=== PATIENT | female | born 1960 | race Caucasian/White ===

== ENCOUNTER 2021-11-21 00:57 | Inpatient (IN) | payer BC ==
[2021-11-21] MEDS ORDERED: Albuterol Sulfate 2.5 mg/3 ml Neb ONE (01:01)
[2021-11-21] MEDS ORDERED: methylPREDNISolone Sod Succ/PF 125 MG/2 ML VIAL ONE (01:04)
[2021-11-21] MEDS ORDERED: Magnesium 2 GM/50 ML BAG (IN WATER) ONE (01:04)
[2021-11-21 01:27] LABS: #Eosinphils 0.1 thou/uL (0.0-0.7); #Lymphocytes 1.1 thou/uL (1.20-3.40); #Monocytes 0.6 thou/uL (0.11-0.59); #Neutrophils 6.3 thou/uL (1.40-6.50); %Eosinophils 1.5 % (0.0-10.0); %Lymphocytes 13.2 % (21.0-51.0); %Monocytes 7.4 % (0.0-10.0); Hemoglobin 10.3 g/dL (12.0-16.0); Mean Corpuscular HGB CONC 34.1 g/dL (32.0-36.0); Mean Corpuscular Hemoglobin 26.8 pg (27.0-31.0); Mean Corpuscular Volume 78.6 fL (78.0-98.0); Mean Platelet Volume 8.2 fL (7.4-10.4); Platelet Count 218 thou/uL (130-400); RBC Distribution Width 14.3 % (11.5-14.5); Red Blood Cell (RBC) Count 3.84 mill/uL (4.20-5.40); White Blood Cell (WBC) Count 8.1 thou/uL (4.8-10.8)
[2021-11-21 01:43] LABS: ALT (SGPT) 15 U/L (8-55); AST (SGOT) 22 U/L (5-34); Albumin 3.7 g/dL (3.5-5.0); Alkaline Phosphatase 118 U/L (40-110); Anion Gap 13 mmol/L (10-20); BUN (Urea Nitrogen) 14 mg/dL (9.8-20.1); Bilirubin, Total 0.6 mg/dL (0.2-1.2); Calc. Creatinine Clearance 0 mL/min (70-130); Calcium 8.4 mg/dL (7.8-10.44); Carbon Dioxide 25 mmol/L (22-29); Chloride 85 mmol/L (98-107); Globulin 2.8 g/dL (2.4-3.5); Glucose 215 mg/dL (70-105); Potassium 4.5 mmol/L (3.5-5.1); Protein, Total 6.5 g/dL (6.0-8.3)
[2021-11-21 01:50] LABS: Sodium 118 mmol/L (136-145)
[2021-11-21 02:24] LABS: SARS-CoV-2 NAA Rapid Test Not Detected (NotDetected)
[2021-11-21] MEDS ORDERED: Furosemide 40 MG/4 ML VIAL ONE (04:03)
[2021-11-21] MEDS ORDERED: Furosemide 20 MG/2 ML VIAL ONE (04:03)
[2021-11-21] MEDS ORDERED: Bisacodyl 5 MG TAB PO PRN (05:08)
[2021-11-21] MEDS ORDERED: Ondansetron PF 4 MG/2 ML Vial IVP PRN (05:08)
[2021-11-21] MEDS ORDERED: Loperamide HCl 2 MG CAP PO PRN (05:08)
[2021-11-21] MEDS ORDERED: Senokot S 8.6-50 MG TAB PO PRN (05:08)
[2021-11-21] MEDS ORDERED: Acetaminophen 325 MG TAB PO PRN (05:08)
[2021-11-21 05:53] VITALS: BMI 31.2
[2021-11-21] MEDS ORDERED: Furosemide 40 MG/4 ML VIAL SLOW IVP SCH ×2 (06:00→08:45)
[2021-11-21] MEDS: Nicotine 14 MG PATCH TD SCH ×2 (06:40→10:11)
[2021-11-21] MEDS ORDERED: Dextrose 50% Abboject 50 ML SYRINGE IVP PRN (07:15)
[2021-11-21] MEDS ORDERED: Dextrose 5% in Water 1,000 ML IV PRN ×2 (07:15→20:36)
[2021-11-21 08:22] LABS: Anion Gap 14 mmol/L (10-20); BUN (Urea Nitrogen) 15 mg/dL (9.8-20.1); Calc. Creatinine Clearance 82 mL/min (70-130); Calcium 8.5 mg/dL (7.8-10.44); Carbon Dioxide 24 mmol/L (22-29); Chloride 83 mmol/L (98-107); Glucose 281 mg/dL (70-105); Potassium 4.3 mmol/L (3.5-5.1)
[2021-11-21 08:27] LABS: Sodium 117 mmol/L (136-145)
[2021-11-21] MEDS ORDERED: Sodium Chloride 3% 200 ML IVPB SCH (08:45)
[2021-11-21] MEDS ORDERED: Iopamidol-370 76% 500 ML 1 ML ONE (08:53)
[2021-11-21] MEDS ORDERED: Insulin Glargine 30 UNITS/0.3 ML VIAL SC SCH ×2 (09:00→11:42)
[2021-11-21] MEDS ORDERED: Non-Formulary Item 1 EACH (Olmesartan Medoxomil [Olmesartan Medoxomil] 40 MG Tablet) PO SCH (09:00)
[2021-11-21] MEDS ORDERED: predniSONE 20 MG TAB PO SCH (09:00)
[2021-11-21 09:56] LABS: Iron 30 ug/dL (50-170); Iron Binding Capacity, Total 374 mcg/dL (265-497)
[2021-11-21] MEDS: Aspirin 81 mg Enteric Coated Tablet PO SCH (10:02)
[2021-11-21] MEDS: Carvedilol 6.25 MG TAB PO SCH ×2 (10:03→21:10)
[2021-11-21] MEDS: Doxycycline 100 MG CAP PO SCH ×2 (10:03→21:10)
[2021-11-21] MEDS: Clopidogrel Bisulfate 75 MG TAB PO SCH (10:04)
[2021-11-21] MEDS: Enoxaparin Sodium 40 MG/0.4 ML SYRINGE SC SCH (10:06)
[2021-11-21] MEDS: Methimazole 5 MG TAB PO SCH (11:38)
[2021-11-21 11:46] LABS: Anion Gap 18 mmol/L (10-20); BUN (Urea Nitrogen) 17 mg/dL (9.8-20.1); Calc. Creatinine Clearance 68 mL/min (70-130); Calcium 8.8 mg/dL (7.8-10.44); Carbon Dioxide 22 mmol/L (22-29); Chloride 81 mmol/L (98-107); Glucose 383 mg/dL (70-105); Potassium 4.4 mmol/L (3.5-5.1)
[2021-11-21 11:54] LABS: Sodium 117 mmol/L (136-145)
[2021-11-21] MEDS ORDERED: Iron, Sodium Ferric Gluconate 250 MG in Sodium Chloride 0.9% 250 ML 250 ML IVPB SCH (14:00)
[2021-11-21 15:59] LABS: Anion Gap 19 mmol/L (10-20); BUN (Urea Nitrogen) 18 mg/dL (9.8-20.1); Calc. Creatinine Clearance 68 mL/min (70-130); Calcium 8.7 mg/dL (7.8-10.44); Carbon Dioxide 23 mmol/L (22-29); Chloride 85 mmol/L (98-107); Glucose 410 mg/dL (70-105); Potassium 4.5 mmol/L (3.5-5.1); Sodium 122 mmol/L (136-145)
[2021-11-21] MEDS ORDERED: Dextrose 50% Abboject 50 ML SYRINGE SLOW IVP PRN (20:36)
[2021-11-21] MEDS ORDERED: Sodium Chloride 1 GM TAB PO SCH (21:00)
[2021-11-21] MEDS: HumaLOG 300 UNITS/3 ML VIAL SC PRN (21:05)
[2021-11-21] MEDS: Insulin Glargine 30 UNITS/0.3 ML VIAL SC SCH (21:06)
[2021-11-21] MEDS: Pramipexole Di-HCl 0.25 MG TAB PO SCH (21:10)
[2021-11-21] MEDS: Zolpidem Tartrate 5 MG TAB PO SCH (21:10)
[2021-11-21] MEDS: Atorvastatin Calcium 40 MG TAB PO SCH (21:11)
[2021-11-21 21:19] LABS: Anion Gap 17 mmol/L (10-20); BUN (Urea Nitrogen) 24 mg/dL (9.8-20.1); Calc. Creatinine Clearance 65 mL/min (70-130); Calcium 8.4 mg/dL (7.8-10.44); Carbon Dioxide 22 mmol/L (22-29); Chloride 88 mmol/L (98-107); Glucose 490 mg/dL (70-105); Potassium 4.3 mmol/L (3.5-5.1); Sodium 123 mmol/L (136-145)
[2021-11-22 04:04] LABS: #Lymphocytes 0.4 thou/uL (1.20-3.40); #Monocytes 0.6 thou/uL (0.11-0.59); #Neutrophils 9.2 thou/uL (1.40-6.50); %Eosinophils 0.1 % (0.0-10.0); %Monocytes 6.2 % (0.0-10.0); %Neutrophils 89.7 % (42.0-75.0); Hemoglobin 9.6 g/dL (12.0-16.0); Mean Corpuscular HGB CONC 33.2 g/dL (32.0-36.0); Mean Corpuscular Hemoglobin 25.8 pg (27.0-31.0); Mean Corpuscular Volume 77.6 fL (78.0-98.0); Mean Platelet Volume 8.8 fL (7.4-10.4); Platelet Count 250 thou/uL (130-400); RBC Distribution Width 14.3 % (11.5-14.5); Red Blood Cell (RBC) Count 3.71 mill/uL (4.20-5.40); White Blood Cell (WBC) Count 10.2 thou/uL (4.8-10.8)
[2021-11-22 04:11] LABS: Hemoglobin A1c 10.6 % (4.0-6.0)
[2021-11-22 04:27] LABS: ALT (SGPT) 11 U/L (8-55); AST (SGOT) 11 U/L (5-34); Albumin 3.4 g/dL (3.5-5.0); Alkaline Phosphatase 101 U/L (40-110); Anion Gap 15 mmol/L (10-20); BUN (Urea Nitrogen) 27 mg/dL (9.8-20.1); Bilirubin, Total 0.3 mg/dL (0.2-1.2); Calc. Creatinine Clearance 71 mL/min (70-130); Calcium 8.5 mg/dL (7.8-10.44); Carbon Dioxide 25 mmol/L (22-29); Chloride 92 mmol/L (98-107); Globulin 2.6 g/dL (2.4-3.5); Glucose 301 mg/dL (70-105); Potassium 3.9 mmol/L (3.5-5.1); Sodium 128 mmol/L (136-145)
[2021-11-22] MEDS: HumaLOG 300 UNITS/3 ML VIAL SC PRN ×3 (05:38→20:43)
[2021-11-22] MEDS ORDERED: Iron Sucrose Complex 500 MG in Sodium Chloride 0.9% 250 ML IVPB SCH (09:30)
[2021-11-22] MEDS ORDERED: Polyethylene Glycol 3350 17 GM Packet PO PRN (09:43)
[2021-11-22] MEDS ORDERED: Sodium Chloride 0.9% 250 ML IV SCH (09:45)
[2021-11-22] MEDS ORDERED: Sodium Chloride 0.9% 500 ML IV SCH (09:45)
[2021-11-22] MEDS: Doxycycline 100 MG CAP PO SCH ×2 (10:57→20:40)
[2021-11-22] MEDS: Insulin Glargine 30 UNITS/0.3 ML VIAL SC SCH (10:57)
[2021-11-22] MEDS: Enoxaparin Sodium 40 MG/0.4 ML SYRINGE SC SCH (10:57)
[2021-11-22] MEDS: Clopidogrel Bisulfate 75 MG TAB PO SCH (10:58)
[2021-11-22] MEDS: Nicotine 14 MG PATCH TD SCH (10:58)
[2021-11-22] MEDS: Aspirin 81 mg Enteric Coated Tablet PO SCH (10:58)
[2021-11-22 11:41] LABS: Platelet Count 248 thou/uL (130-400)
[2021-11-22] MEDS: Methimazole 5 MG TAB PO SCH (11:51)
[2021-11-22 11:57] LABS: Anion Gap 14 mmol/L (10-20); BUN (Urea Nitrogen) 28 mg/dL (9.8-20.1); Calc. Creatinine Clearance 71 mL/min (70-130); Calcium 8.6 mg/dL (7.8-10.44); Carbon Dioxide 25 mmol/L (22-29); Chloride 95 mmol/L (98-107); Glucose 110 mg/dL (70-105); Sodium 130 mmol/L (136-145)
[2021-11-22 12:01] LABS: Troponin I Less than 0.010 ng/mL (< 0.028)
[2021-11-22 12:08] LABS: Troponin I Less than 0.010 ng/mL (< 0.028)
[2021-11-22] MEDS: Carvedilol 6.25 MG TAB PO SCH (12:36)
[2021-11-22] MEDS: SODIUM CHLORIDE 0.9% IVPB SCH ×2 (13:04→23:34)
[2021-11-22] MEDS: IRON IVPB SCH ×2 (13:04→23:34)
[2021-11-22] MEDS: SODIUM FERRIC GLUCONATE IVPB SCH ×2 (13:04→23:34)
[2021-11-22 18:09] LABS: Anion Gap 13 mmol/L (10-20); BUN (Urea Nitrogen) 26 mg/dL (9.8-20.1); Calc. Creatinine Clearance 64 mL/min (70-130); Calcium 8.4 mg/dL (7.8-10.44); Carbon Dioxide 24 mmol/L (22-29); Chloride 93 mmol/L (98-107); Glucose 250 mg/dL (70-105); Potassium 3.9 mmol/L (3.5-5.1); Sodium 126 mmol/L (136-145)
[2021-11-22] MEDS: Senokot S 8.6-50 MG TAB PO SCH (20:40)
[2021-11-22] MEDS: Atorvastatin Calcium 40 MG TAB PO SCH (20:40)
[2021-11-22] MEDS: Pramipexole Di-HCl 0.25 MG TAB PO SCH (20:40)
[2021-11-22] MEDS: Zolpidem Tartrate 5 MG TAB PO SCH (20:40)
[2021-11-22] MEDS ORDERED: Sodium Chloride 1 GM TAB PO SCH (21:00)
[2021-11-23 03:29] VITALS: TEMP 97.9
[2021-11-23 04:33] LABS: #Basophils 0.1 thou/uL (0.0-0.2); #Eosinphils 0.1 thou/uL (0.0-0.7); #Lymphocytes 2.2 thou/uL (1.20-3.40); #Monocytes 0.7 thou/uL (0.11-0.59); #Neutrophils 8.5 thou/uL (1.40-6.50); %Basophils 0.5 % (0.0-1.0); %Eosinophils 0.7 % (0.0-10.0); %Lymphocytes 18.9 % (21.0-51.0); %Monocytes 6.3 % (0.0-10.0); %Neutrophils 73.6 % (42.0-75.0); Hemoglobin 9.8 g/dL (12.0-16.0); Mean Corpuscular HGB CONC 32.3 g/dL (32.0-36.0); Mean Corpuscular Hemoglobin 25.7 pg (27.0-31.0); Mean Corpuscular Volume 79.6 fL (78.0-98.0); Mean Platelet Volume 8.4 fL (7.4-10.4); Platelet Count 294 thou/uL (130-400); RBC Distribution Width 14.7 % (11.5-14.5); White Blood Cell (WBC) Count 11.6 thou/uL (4.8-10.8)
[2021-11-23 04:54] LABS: Phosphorus 3.5 mg/dL (2.3-4.7)
[2021-11-23 04:59] LABS: Anion Gap 13 mmol/L (10-20); BUN (Urea Nitrogen) 22 mg/dL (9.8-20.1); Calc. Creatinine Clearance 84 mL/min (70-130); Calcium 8.1 mg/dL (7.8-10.44); Carbon Dioxide 24 mmol/L (22-29); Chloride 100 mmol/L (98-107); Magnesium 1.9 mg/dL (1.6-2.6); Potassium 3.6 mmol/L (3.5-5.1); Sodium 133 mmol/L (136-145)
[2021-11-23 05:02] LABS: Glucose 37 mg/dL (70-105)
[2021-11-23] MEDS ORDERED: Insulin Glargine 30 UNITS/0.3 ML VIAL SC SCH (09:00)
[2021-11-23] MEDS: Senokot S 8.6-50 MG TAB PO SCH (10:04)
[2021-11-23] MEDS: Clopidogrel Bisulfate 75 MG TAB PO SCH (10:04)
[2021-11-23] MEDS: Doxycycline 100 MG CAP PO SCH (10:05)
[2021-11-23] MEDS: Aspirin 81 mg Enteric Coated Tablet PO SCH (10:05)
[2021-11-23] MEDS: Enoxaparin Sodium 40 MG/0.4 ML SYRINGE SC SCH (10:05)
[2021-11-23] MEDS: Methimazole 5 MG TAB PO SCH (10:05)
[2021-11-23] MEDS: Nicotine 14 MG PATCH TD SCH (10:06)
[2021-11-23 14:23] VITALS: BP 128/79
== END 2021-11-23 11:46 | disposition home or self-care (01) | DRG 177 ==
LOC: ERS 00:57 → 2NO 04:00
PROVIDERS: ADMIT Internal Medicine; ATTEND Internal Medicine
DX: J15.6 Pneumonia due to other Gram-negative bacteria (principal); J96.01 Acute respiratory failure with hypoxia; I50.33 Acute on chronic diastolic (congestive) heart failure; J44.1 Chronic obstructive pulmonary disease with (acute) exacerbation; E22.1 Hyperprolactinemia; E22.2 Syndrome of inappropriate secretion of antidiuretic hormone; J44.0 Chronic obstructive pulmonary disease with (acute) lower respiratory infection; I11.0 Hypertensive heart disease with heart failure; Z20.822 Contact with and (suspected) exposure to COVID-19; I25.10 Atherosclerotic heart disease of native coronary artery without angina pectoris; F17.210 Nicotine dependence, cigarettes, uncomplicated; E11.65 Type 2 diabetes mellitus with hyperglycemia; E78.2 Mixed hyperlipidemia; E05.90 Thyrotoxicosis, unspecified without thyrotoxic crisis or storm; E11.42 Type 2 diabetes mellitus with diabetic polyneuropathy; E86.0 Dehydration; I95.9 Hypotension, unspecified; E03.9 Hypothyroidism, unspecified; E66.9 Obesity, unspecified; D50.9 Iron deficiency anemia, unspecified; E21.3 Hyperparathyroidism, unspecified; Z95.5 Presence of coronary angioplasty implant and graft; Z90.49 Acquired absence of other specified parts of digestive tract; Z88.0 Allergy status to penicillin; Z88.1 Allergy status to other antibiotic agents; Z90.721 Acquired absence of ovaries, unilateral; Z82.49 Family history of ischemic heart disease and other diseases of the circulatory system; Z79.82 Long term (current) use of aspirin; Z79.899 Other long term (current) drug therapy; Z79.02 Long term (current) use of antithrombotics/antiplatelets; Z79.4 Long term (current) use of insulin; Z68.30 Body mass index [BMI] 30.0-30.9, adult; Z98.51 Tubal ligation status
CPT/HCPCS: 36415; 36416; 71045; 71275; 80048; 80053; 82533; 82728; 83036; 83540; 83550; 83605; 83735; 83880; 83930; 83935; 84100; 84443; 84484; 85025; 85379; 87040; 93005; 93306; 93798; 94640; 96374; 96375; J1650; J1815; J1940; J2916; J2930; J3475; J3490; J7030; J7050; J7131; J7512; J7611; J7620; Q9967

== ENCOUNTER 2022-01-31 07:19 | Observation (INO) | payer BC ==
[2022-01-31 08:02] LABS: #Basophils 0.1 thou/uL (0.0-0.2); #Eosinphils 0.1 thou/uL (0.0-0.7); #Lymphocytes 1.2 thou/uL (1.20-3.40); #Monocytes 0.4 thou/uL (0.11-0.59); #Neutrophils 5.9 thou/uL (1.40-6.50); %Basophils 0.9 % (0.0-1.0); %Eosinophils 1.2 % (0.0-10.0); %Lymphocytes 16.2 % (21.0-51.0); %Monocytes 5.2 % (0.0-10.0); %Neutrophils 76.7 % (42.0-75.0); Hemoglobin 8.8 g/dL (12.0-16.0); Mean Corpuscular HGB CONC 31.6 g/dL (32.0-36.0); Mean Corpuscular Hemoglobin 25.5 pg (27.0-31.0); Mean Corpuscular Volume 80.8 fL (78.0-98.0); Mean Platelet Volume 8.3 fL (7.4-10.4); Platelet Count 290 thou/uL (130-400); RBC Distribution Width 18.6 % (11.5-14.5); Red Blood Cell (RBC) Count 3.44 mill/uL (4.20-5.40); White Blood Cell (WBC) Count 7.7 thou/uL (4.8-10.8)
[2022-01-31 08:21] LABS: ALT (SGPT) 7 U/L (8-55); AST (SGOT) 11 U/L (5-34); Albumin 3.6 g/dL (3.5-5.0); Alkaline Phosphatase 129 U/L (40-110); Anion Gap 13 mmol/L (10-20); BUN (Urea Nitrogen) 13 mg/dL (9.8-20.1); Bilirubin, Total 0.3 mg/dL (0.2-1.2); Calc. Creatinine Clearance 0 mL/min (70-130); Calcium 8.7 mg/dL (7.8-10.44); Carbon Dioxide 26 mmol/L (22-29); Chloride 98 mmol/L (98-107); Globulin 2.7 g/dL (2.4-3.5); Glucose 266 mg/dL (70-105); Potassium 4.5 mmol/L (3.5-5.1); Protein, Total 6.3 g/dL (6.0-8.3); Sodium 132 mmol/L (136-145)
[2022-01-31] MEDS ORDERED: Albuterol Sulfate 2.5 mg/0.5 ml Neb ONE (08:24)
[2022-01-31 08:43] LABS: CKMB 1.6 ng/mL (0-6.6)
[2022-01-31] MEDS ORDERED: Aspirin Chewable 81 MG TAB ONE (09:37)
[2022-01-31] MEDS ORDERED: Furosemide 40 MG/4 ML VIAL ONE (09:37)
[2022-01-31] MEDS ORDERED: Dextrose 50% Abboject 50 ML SYRINGE SLOW IVP PRN (10:24)
[2022-01-31] MEDS ORDERED: Dextrose 5% in Water 1,000 ML IV PRN (10:24)
[2022-01-31] MEDS ORDERED: Ondansetron PF 4 MG/2 ML Vial IVP PRN (10:24)
[2022-01-31] MEDS ORDERED: HumaLOG 300 UNITS/3 ML VIAL SC PRN (10:24)
[2022-01-31] MEDS ORDERED: Ondansetron ODT 4 MG TAB PO PRN (10:24)
[2022-01-31] MEDS ORDERED: Acetaminophen 325 MG TAB PO PRN (10:24)
[2022-01-31] MEDS ORDERED: HYDROcodone/Acetaminophen 5/325 mg Tablet PO PRN (10:24)
[2022-01-31] MEDS ORDERED: Nicotine 14 MG PATCH TD SCH (11:00)
[2022-01-31 11:24] LABS: Troponin I 0.398 ng/mL (< 0.028)
[2022-01-31] MEDS ORDERED: Enoxaparin Sodium 30 MG/0.3 ML SYRINGE SC SCH (12:00)
[2022-01-31 12:29] VITALS: BMI 33.0
[2022-01-31] MEDS: Furosemide 20 MG/2 ML VIAL SLOW IVP SCH (13:30)
[2022-01-31 13:55] LABS: Troponin I 0.499 ng/mL (< 0.028)
[2022-01-31] MEDS ORDERED: Communication Order-Pharmacy FS SCH (14:30)
[2022-01-31] MEDS: Sodium Chloride 0.9% 1,000 ML IV SCH (15:05)
[2022-01-31 17:16] LABS: CKMB 2.1 ng/mL (0-6.6)
[2022-01-31] MEDS: Ferrous Sulfate 325 MG TAB PO SCH (17:45)
[2022-01-31] MEDS: HumaLOG 300 UNITS/3 ML VIAL SC PRN (18:07)
[2022-01-31] MEDS ORDERED: Atorvastatin Calcium 40 MG TAB PO SCH (21:00)
[2022-01-31] MEDS ORDERED: Zolpidem Tartrate 5 MG TAB PO SCH (23:45)
[2022-02-01 05:01] LABS: #Basophils 0.1 thou/uL (0.0-0.2); #Eosinphils 0.1 thou/uL (0.0-0.7); #Lymphocytes 1.3 thou/uL (1.20-3.40); #Monocytes 0.3 thou/uL (0.11-0.59); #Neutrophils 5.1 thou/uL (1.40-6.50); %Basophils 0.7 % (0.0-1.0); %Eosinophils 1.3 % (0.0-10.0); %Lymphocytes 18.6 % (21.0-51.0); %Neutrophils 74.4 % (42.0-75.0); Hemoglobin 8.3 g/dL (12.0-16.0); Mean Corpuscular HGB CONC 32.3 g/dL (32.0-36.0); Mean Corpuscular Volume 80.5 fL (78.0-98.0); Mean Platelet Volume 8.2 fL (7.4-10.4); Platelet Count 264 thou/uL (130-400); RBC Distribution Width 18.7 % (11.5-14.5); White Blood Cell (WBC) Count 6.8 thou/uL (4.8-10.8)
[2022-02-01] MEDS: Furosemide 20 MG/2 ML VIAL SLOW IVP SCH (06:12)
[2022-02-01 06:39] LABS: ALT (SGPT) 8 U/L (8-55); AST (SGOT) 8 U/L (5-34); Albumin 3.4 g/dL (3.5-5.0); Alkaline Phosphatase 103 U/L (40-110); Anion Gap 12 mmol/L (10-20); BUN (Urea Nitrogen) 14 mg/dL (9.8-20.1); Bilirubin, Total 0.3 mg/dL (0.2-1.2); Calc. Creatinine Clearance 103 mL/min (70-130); Calcium 8.8 mg/dL (7.8-10.44); Carbon Dioxide 26 mmol/L (22-29); Chloride 100 mmol/L (98-107); Globulin 2.6 g/dL (2.4-3.5); Glucose 142 mg/dL (70-105); Potassium 3.8 mmol/L (3.5-5.1); Sodium 134 mmol/L (136-145)
[2022-02-01] MEDS ORDERED: Aspirin Chewable 81 MG TAB PO SCH (09:00)
[2022-02-01] MEDS ORDERED: Aspirin 81 mg Enteric Coated Tablet PO SCH (09:00)
[2022-02-01] MEDS ORDERED: Clopidogrel Bisulfate 75 MG TAB PO SCH (09:00)
[2022-02-01] MEDS ORDERED: Nicotine 21 MG PATCH TD SCH (09:00)
[2022-02-01] MEDS ORDERED: Enoxaparin Sodium 30 MG/0.3 ML SYRINGE SC SCH (09:00)
[2022-02-01] MEDS ORDERED: Methimazole 5 MG TAB PO SCH (09:00)
[2022-02-01] MEDS: Sodium Chloride 0.9% 1,000 ML IV SCH (09:08)
[2022-02-01] MEDS: Ferrous Sulfate 325 MG TAB PO SCH ×2 (09:08→16:04)
[2022-02-01] MEDS: HumaLOG 300 UNITS/3 ML VIAL SC PRN ×2 (12:16→17:11)
[2022-02-01] MEDS ORDERED: Ipratropium Oral Inhaler INH PRN (12:37)
[2022-02-01] MEDS ORDERED: Albuterol 200 PUFF (6.7GM INHALER) INH PRN (12:38)
[2022-02-01 16:16] VITALS: BP 172/70; TEMP 98.2
[2022-02-01] MEDS ORDERED: HumaLOG 300 UNITS/3 ML VIAL SC PRN (17:11)
[2022-02-01] MEDS ORDERED: Mometasone 100 MCG/Formoterol 5 MCG 120 PUFF INHALER INH SCH (18:30)
[2022-02-01 19:36] LABS: Iron 23 ug/dL (50-170); Iron Binding Capacity, Total 339 mcg/dL (265-497)
[2022-02-01] MEDS ORDERED: Zolpidem Tartrate 5 MG TAB PO SCH (21:00)
[2022-02-01] MEDS ORDERED: Pramipexole Di-HCl 0.25 MG TAB PO SCH (21:00)
[2022-02-01] MEDS ORDERED: Insulin Glargine 30 UNITS/0.3 ML VIAL SC SCH (21:00)
[2022-02-02] MEDS ORDERED: Furosemide 20 MG TAB PO SCH (09:00)
[2022-02-02] MEDS ORDERED: Insulin Glargine 30 UNITS/0.3 ML VIAL SC SCH (09:00)
== END 2022-02-01 19:55 | disposition home or self-care (01) ==
LOC: ERS 07:19 → 2SW 09:43 → OBSVTOIN 02-01 16:15 → INTOOBSV 02-01 16:15
PROVIDERS: ADMIT Internal Medicine; ATTEND Internal Medicine
DX: I21.4 Non-ST elevation (NSTEMI) myocardial infarction (principal); U07.1 COVID-19; I11.0 Hypertensive heart disease with heart failure; I50.33 Acute on chronic diastolic (congestive) heart failure; J44.9 Chronic obstructive pulmonary disease, unspecified; E11.40 Type 2 diabetes mellitus with diabetic neuropathy, unspecified; D50.9 Iron deficiency anemia, unspecified; I25.10 Atherosclerotic heart disease of native coronary artery without angina pectoris; E05.90 Thyrotoxicosis, unspecified without thyrotoxic crisis or storm; F17.210 Nicotine dependence, cigarettes, uncomplicated; E78.5 Hyperlipidemia, unspecified; E22.2 Syndrome of inappropriate secretion of antidiuretic hormone; Z79.02 Long term (current) use of antithrombotics/antiplatelets; Z79.4 Long term (current) use of insulin; Z79.82 Long term (current) use of aspirin; Z79.899 Other long term (current) drug therapy; Z88.0 Allergy status to penicillin; Z88.1 Allergy status to other antibiotic agents; Z95.5 Presence of coronary angioplasty implant and graft; Z95.820 Peripheral vascular angioplasty status with implants and grafts
CPT/HCPCS: 36415; 36416; 71045; 80053; 82553; 82728; 83540; 83550; 83880; 84484; 85025; 87086; 93005; 96372; 96374; 96376; G0378; J1650; J1815; J1940; J7050; J7611; J7620; U0003; U0005

== ENCOUNTER 2022-08-04 08:55 | Outpatient (CLI) | payer BC | END 2022-08-04 08:56 | disposition home or self-care (01) | LOC: BICCT 08:55 | PROVIDERS: ATTEND Thoracic Surgery (Cardiothoracic Vascular Surgery) | DX: I73.9 Peripheral vascular disease, unspecified (principal); I70.8 Atherosclerosis of other arteries; I70.203 Unspecified atherosclerosis of native arteries of extremities, bilateral legs | CPT/HCPCS: 75635; 82565 ==